=== PATIENT | female | born 1960 | race Caucasian/White ===

== ENCOUNTER 2025-06-16 11:58 | Emergency (ER) | payer BC ==
[2025-06-16 13:00] LABS: BASOPHILS ABSOLUTE AUTO 0.0 x10^3/uL (0.0-0.2); BASOPHILS PERCENT AUTO 0.4 % (0.2-1.2); EOSINOPHILS ABSOLUTE AUTO 0.1 x10^3/uL (0.0-0.5); EOSINOPHILS PERCENT AUTO 0.7 % (0.0-4.0); IMMATURE GRAN ABSOLUTE AUTO 0.01 x10^3/uL (0.00-0.07); IMMATURE GRAN PERCENT AUTO 0.10 % (0.00-0.43); LYMPHOCYTES ABSOLUTE AUTO 1.3 x10^3/uL (1.0-4.8); LYMPHOCYTES PERCENT AUTO 13.1 % (25.0-50.0); MONOCYTES ABSOLUTE AUTO 0.6 x10^3/uL (0.0-0.8); MONOCYTES PERCENT AUTO 5.7 % (2.0-11.0); NEUTROPHILS ABSOLUTE AUTO 8.1 x10^3/uL (1.8-7.7); NEUTROPHILS PERCENT AUTO 80.0 % (50.0-80.0); PLATELET COUNT,PLT 283 x10^3/uL (130-400); RED BLOOD CELL COUNT 3.92 x10^6/uL (4.00-5.50); WHITE BLOOD CELL COUNT,WBC 10.2 x10^3/uL (4.0-10.0)
[2025-06-16 13:22] LABS: A/G RATIO 1.30; ALANINE AMINOTRANSFERASE,ALT 18 U/L (14-59); ASPARTATE AMNIOTRANSFERASE,AST 13 U/L (15-37); BILIRUBIN TOTAL 0.6 mg/dL (0.2-1.0); BLOOD UREA NITROGEN,BUN 14 mg/dL (7-18); CARBON DIOXIDE,CO2 25 mmol/L (21-32); CHLORIDE,CL 105 mmol/L (98-107); CREATININE 1.1 mg/dL (0.55-1.02); GLUCOSE RANDOM 115 mg/dL (70-99); POTASSIUM,K 3.6 mmol/L (3.5-5.1); PROTEIN TOTAL,TP 6.2 g/dL (6.4-8.2); SODIUM,NA 142 mmol/L (136-145)
[2025-06-16 13:23] LABS: ESTIMATED GFR 55 mL/min (>=60)
[2025-06-16] MEDS: Ondansetron 4 MG/2 ML SDV IVPUSH ONE (13:48)
== END 2025-06-16 14:06 | disposition short-term general hospital (02) ==
LOC: VM.ED 11:58
DX: S82.832A Other fracture of upper and lower end of left fibula, initial encounter for closed fracture (principal); S82.102A Unspecified fracture of upper end of left tibia, initial encounter for closed fracture; Z87.891 Personal history of nicotine dependence; W17.89XA Other fall from one level to another, initial encounter; Y93.89 Activity, other specified
CPT/HCPCS: 36415; 73590-LT; 80053; 85025; 96374; 96375; 96376; 99283; 99285-25; J1171; J2405

== ENCOUNTER 2025-06-29 07:43 | Inpatient (IN) | payer BC, MEDICARE ==
[2025-06-29] MEDS ORDERED: Ondansetron 4 MG Tab.DIS PO PRN (18:07)
[2025-06-30 07:09] LABS: PLATELET COUNT,PLT 511.0 x10^3/uL (130-400); RED BLOOD CELL COUNT 2.77 x10^6/uL (4.00-5.50); WHITE BLOOD CELL COUNT,WBC 7.2 x10^3/uL (4.0-10.0)
[2025-06-30] MEDS: Calcium Carbonate/Vitamin D3 1250 MG-5 MCG Tab PO SCH (08:31)
[2025-06-30] MEDS: Potassium Chloride 20 MEQ Tab.ER PO SCH (08:31)
[2025-06-30] MEDS: Cholecalciferol (Vitamin D3) 25 MCG Tab PO SCH (08:31)
[2025-06-30] MEDS: Cyanocobalamin (Vitamin B12) 1,000 MCG Tab PO SCH (08:32)
[2025-06-30] MEDS: EVENING PRIMROSE OIL 500 MG PO SCH (09:34)
[2025-07-01] MEDS ORDERED: Magnesium Hydroxide 400 MG/5 ML Susp 30 ML Cup PO PRN (09:51)
[2025-07-03 08:18] LABS: PLATELET COUNT,PLT 598.0 x10^3/uL (130-400); RED BLOOD CELL COUNT 3.06 x10^6/uL (4.00-5.50); WHITE BLOOD CELL COUNT,WBC 5.7 x10^3/uL (4.0-10.0)
[2025-07-06 06:46] LABS: PLATELET COUNT,PLT 536.0 x10^3/uL (130-400); RED BLOOD CELL COUNT 3.17 x10^6/uL (4.00-5.50); WHITE BLOOD CELL COUNT,WBC 5.2 x10^3/uL (4.0-10.0)
[2025-07-06 18:35] VITALS: BP 136/68; PULSE 91
== END 2025-07-06 18:30 | disposition home or self-care (01) | DRG 861 ==
LOC: VM.MS 14:24
PROVIDERS: ADMIT Nurse Practitioner Family; ATTEND Nurse Practitioner Family
DX: R53.1 Weakness (principal); E66.9 Obesity, unspecified; D64.9 Anemia, unspecified; S82.402D Unspecified fracture of shaft of left fibula, subsequent encounter for closed fracture with routine healing; K21.9 Gastro-esophageal reflux disease without esophagitis; E87.6 Hypokalemia; Z68.36 Body mass index [BMI] 36.0-36.9, adult; Z98.890 Other specified postprocedural states; Z87.891 Personal history of nicotine dependence; Z98.51 Tubal ligation status; Z79.899 Other long term (current) drug therapy; Z96.649 Presence of unspecified artificial hip joint
CPT/HCPCS: 36415; 85027; 97110-GP; 97161-GP; 97165-GO; 97530-GP; 97535-GO; A9270-GY; J1650